=== PATIENT | female | born 1975 | race Caucasian/White ===

== ENCOUNTER 2018-07-02 08:31 | Emergency (ER) | payer OTHER ==
[~2018-07-02] VITALS: Ht 165.1 cm; Wt 95.2 kg
[2018-07-02] MEDS ORDERED: OMEPRAZOLE20 MG PO (08:51)
[2018-07-02] MEDS ORDERED: IMITREX100 MG PO (08:54)
[2018-07-02] MEDS ORDERED: IBUPROFEN600 MG PO (10:10)
[2018-07-02] MEDS ORDERED: ZOFRAN ODT4 MG PO (10:10)
== END 2018-07-02 10:31 | disposition home or self-care (01) ==
LOC: ED 08:31
DX: G43.909 Migraine, unspecified, not intractable, without status migrainosus (principal); Z79.899 Other long term (current) drug therapy
CPT/HCPCS: 70450; 99284